=== PATIENT | male | born 2000 | race Caucasian/White ===

== ENCOUNTER 2022-10-22 19:33 | Emergency (ER) | payer OTHER, SELFPAY ==
[2022-10-22 19:38] VITALS: BP 140/74; PULSE 95; RESP 20; TEMP 37.9; O2SAT 99
--- NOTE | 2022-10-22 19:38 | ED.URI ---
HPI - URI/Sore Throat General Chief Complaint: Upper Respiratory Infection Stated Complaint: sore throat, headache Time Seen by Provider: 10/22/22 19:38 Source: patient and RN notes reviewed History of Present Illness HPI Narrative: Patient is a 22-year-old male who presents to urgent care with complaints of sore throat, headache and fever. Patient states that it started this morning. Patient has taken Tylenol for his symptoms. Denies any ill exposures. No other acute complaints. No acute distress noted. Patient aware of the plan of care. Some parts of this dictation were generated by voice recognition software and may contain typographical and/or grammatical inaccuracies. Related Data Home Medications Medication Instructions Recorded Confirmed No Home Medications 10/22/22 10/22/22 Allergies Allergy/AdvReac Type Severity Reaction Status Date / Time No Known Allergies Allergy Verified 10/22/22 19:46 Review of Systems Review of Systems: CONSTITUTIONAL: Reports of fever EYES: Denies visual changes, redness, or discharge. ENT: Denies rhinorrhea, congestion, otalgia. Reports of sore throat CARDIOVASCULAR: Denies chest pain, palpitations, or edema. RESPIRATORY: Denies cough or dyspnea. GASTROINTESTINAL: Denies abdominal pain, nausea, vomiting, or diarrhea. GENITOURINARY: Denies dysuria or hematuria. SKIN: Denies rash or itching. MUSCULOSKELETAL: Denies back pain, joint pain, or myalgia. NEUROLOGIC: Reports of headache All other systems reviewed are negative, except as documented in HPI. PMFSH Comments At the time of my signature, I reviewed and agree with the nursing past medical, surgical, social, and family history. There is no relevant family history pertinent to the patient complaint. Exam Narrative: GENERAL: This is a well-nourished, well-developed patient. Appears fatigued HEAD: normocephalic, atraumatic. EYES: PERRL. Sclera clear/white. Vision is grossly intact. EARS: External ears normal, auditory canals clear and without drainage, TMs normal without perforation. Hearing grossly intact. NOSE: External nose normal with no obvious nasal discharge, nares without redness, no rhinorrhea. THROAT: Mucous membranes moist, mild bilateral tonsillar edema/erythema with moderate postnasal drainage and moderate erythema noted posterior oropharynx NECK: Neck supple, non-tender without lymphadenopathy CARDIOVASCULAR: Regular rate and rhythm without murmurs, gallops, or rubs. RESPIRATORY: Clear to auscultation. Breath sounds equal bilaterally. No wheezes, rales, or rhonchi. SKIN: warm, intact with no suspicious lesions or rash, good texture and turgor. NEURO: awake, alert, and oriented to person, place and time. There were no obvious focal neurologic abnormalities. EXTREMITIES: No clubbing, cyanosis, or edema. Course Course Level of Care: Express Care Visit Vital Signs Vital signs: Vital Signs Temperature 100.3 F H 10/22/22 19:38 Pulse Rate 95 10/22/22 19:38 Respiratory Rate 20 10/22/22 19:38 Blood Pressure 140/74 10/22/22 19:38 Pulse Oximetry 99 10/22/22 19:38 Oxygen Delivery Room Air 10/22/22 19:38 Temperature 100.3 F H 10/22/22 19:38 Pulse Rate 95 10/22/22 19:38 Respiratory Rate 20 10/22/22 19:38 Blood Pressure 140/74 10/22/22 19:38 Pulse Oximetry 99 10/22/22 19:38 Oxygen Delivery Room Air 10/22/22 19:38 Reviewed MDM - URI/Sore Throat MDM Narrative Medical decision making narrative: Reviewed lab results with the patient. He is aware that strep swab was negative. Educated the patient on culture we will call within 72 hours if strep culture is positive antibiotics are necessary. Symptoms are also very consistent for a likelihood of influenza A. Due to lack of testing, unable to verify. Viral syndrome is treated with Tylenol/ibuprofen and supportive medications etct-vye-pbjeoja such as Zyrtec/Claritin/Benadryl. Use a humidifier at night. Increase water and rest
== END 2022-10-22 19:56 | disposition home or self-care (01) ==
PROVIDERS: Emergency Provider Nurse Practitioner Family; PCP Family Medicine
DX: J02.9 Acute pharyngitis, unspecified (principal)
CPT/HCPCS: 87081; 87880; 99213; G0463